=== PATIENT | male | born 1980 | race African-American/Black ===

== ENCOUNTER 2018-06-30 20:23 | Emergency (ER) | payer MEDICAID ==
[~2018-06-30] VITALS: Ht 182.9 cm; Wt 82.0 kg
[~2018-06-30 20:23] MED LIST: ALBU05 IH
[2018-06-30] MEDS ORDERED: BACITRACIN ZINC OINT UDPKT TOP ONE (21:00)
[2018-06-30] MEDS ORDERED: LIDOCAINE 1%/EPI 1:100,000 10 ML VIAL IJ ONE (21:00)
[2018-06-30] MEDS ORDERED: LIDOCAINE HCL/EPINEPHRINE 1%-EPI 1:100,000 20 ML VIAL IJ STA (21:24)
[2018-06-30 23:45] VITALS: BP 120/96
== END 2018-07-01 00:05 | disposition home or self-care (01) ==
LOC: ER 20:23
DX: S01.511A Laceration without foreign body of lip, initial encounter (principal); R51 Headache; F17.200 Nicotine dependence, unspecified, uncomplicated; Y08.89XA Assault by other specified means, initial encounter; Y93.89 Activity, other specified; Y99.8 Other external cause status; Y92.89 Other specified places as the place of occurrence of the external cause; Z88.0 Allergy status to penicillin
CPT/HCPCS: 12013; 70450; 99284; J3490; Z7610

== ENCOUNTER 2018-07-21 15:19 | Emergency (ER) | payer MEDICAID ==
[~2018-07-21] VITALS: Ht 182.9 cm; Wt 95.0 kg
[2018-07-21] MEDS ORDERED: BACITRACIN ZINC OINT UDPKT TOP ONE (16:00)
[2018-07-21] MEDS ORDERED: LIDOCAINE HCL/PF 1% 10 MG/ML 5ML VIAL IJ ONE (16:00)
[2018-07-21 17:07] VITALS: BP 153/88
[2018-07-21] MEDS ORDERED: KETOROLAC 60MG/2ML VIAL IM ONE (17:15)
== END 2018-07-21 17:17 | disposition home or self-care (01) ==
LOC: ER 15:19
DX: S01.511A Laceration without foreign body of lip, initial encounter (principal); F17.210 Nicotine dependence, cigarettes, uncomplicated; Z88.0 Allergy status to penicillin; Y04.0XXA Assault by unarmed brawl or fight, initial encounter; Y93.89 Activity, other specified; Y92.89 Other specified places as the place of occurrence of the external cause
CPT/HCPCS: 12015; 96372; 99283; J1885; J3490

== ENCOUNTER 2018-07-25 16:56 | Emergency (ER) | payer MEDICAID ==
[~2018-07-25] VITALS: Ht 182.9 cm; Wt 89.0 kg
[2018-07-25 17:27] VITALS: BP 139/87
== END 2018-07-25 19:16 | disposition home or self-care (01) ==
LOC: ER 17:50
DX: Z48.00 Encounter for change or removal of nonsurgical wound dressing (principal)
CPT/HCPCS: 99283

== ENCOUNTER 2018-07-28 16:14 | Emergency (ER) | payer MEDICAID ==
[~2018-07-28] VITALS: Ht 182.9 cm; Wt 92.0 kg
[2018-07-28 16:54] VITALS: BP 132/79
== END 2018-07-28 18:31 | disposition left against medical advice (07) ==
LOC: ER 16:14
DX: Z53.21 Procedure and treatment not carried out due to patient leaving prior to being seen by health care provider (principal)